=== PATIENT | female | born 1980 | race African-American/Black ===

== ENCOUNTER 2017-05-04 20:44 | Emergency (ER) | payer OTHER ==
[2017-05-04 20:53] VITALS: BP 128/81; PULSE 93; TEMP 99; BMI 28.5
--- NOTE | 2017-05-04 21:44 | PDOC ---
History of Present Illness - General Chief Complaint: Abscess Boil Stated Complaint: PAIN DISCOMFORT IN VAGINA AREA Time Seen by Provider: 05/04/17 21:36 History Source: Patient Exam Limitations: No Limitations - History of Present Illness Initial Comments: CHIEF COMPLAINT: 36 y/o afebrile female with no significant PMH c/o bartholin cyst. HISTORY OF PRESENT ILLNESS: The patient states that she had a bartholin cyst drained Friday (5 days ago) by her ENGINE TESTING SUPERVISOR. A phan's catheter was inserted, which fell out on (3 days ago). She states since then the swelling has returned as well as the pain. She was not placed on any antibiotics and received no injections of antibiotics when she had the cyst drained. She has been soaking in hot water. She denies f/c, n/v/d, CP, SOB, hematuria, dysuria, abd pain. Vital signs on arrival are within normal limits. REVIEW OF SYSTEMS: GENERAL/CONSTITUTIONAL: No fever/chills. No weakness. No weight change. GASTROINTESTINAL: no abd pain, nausea, vomiting, diarrhea. GENITOURINARY: No dysuria, frequency, or change in urination. +painful vaginal cyst MUSCULOSKELETAL: No joint or muscle swelling or pain. No neck or back pain. SKIN: No rash or easy bruising. PHYSICAL EXAM: GENERAL: The patient is awake, alert, and fully oriented, in no acute distress. She is ambulatory and in moderate discomfort. ABDOMEN: Soft, non-distended, non-tender even to deep palpation, no hepatomegaly or splenomegaly, no masses. VAGINAL: nonfluctuant area of edema and erythema of left labia minora at level of vaginal opening. There is a visible opening where the previous phan's catheter was placed. Gentle pressure expresses no discharge from open wound. EXTREMITIES: Normal range of motion, no edema. NEUROLOGICAL: Normal speech, normal gait. CN II-XII grossly intact. SKIN: Warm, dry, normal turgor, no rashes or lesions noted. Past History - Past Medical History Allergies/Adverse Reactions: Allergies Allergy/AdvReac Type Severity Reaction Status Date / Time No Known Allergies Allergy Verified 05/04/17 20:53 Home Medications: Ambulatory Orders Oxycodone HCl/Acetaminophen [Percocet 5-325 mg Tablet] 1 tab PO Q6H #6 tablet MDD 3 05/04/17 Sulfamethoxazole/Trimethoprim [Bactrim Ds -] 1 tab PO BID #14 tablet 05/04/17 - Psycho/Social/Smoking Cessation Hx Anxiety: No Suicidal Ideation: No Smoking History: Never smoked Have you smoked in the past 12 months: No Information on smoking cessation initiated: No Hx Alcohol Use: No Drug/Substance Use Hx: No Substance Use Type: None *Physical Exam - Vital Signs Last Vital Signs Temp Pulse Resp BP Pulse Ox 99.0 F 93 H 18 128/81 100 05/04/17 20:49 05/04/17 20:49 05/04/17 20:49 05/04/17 20:49 05/04/17 20:49 Medical Decision Making - Medical Decision Making A/P: 36 y/o afebrile female with left bartholin cyst. Used hemostat to explore the open tract of the cyst after cleansing with betadine. Was able to reopen the area and no purulent discharge was expressed. WIll send UA for culture and GC/chlamydia. Will give patient a PO Percocet and Bactrim in the ER. Will send RX for bactrim and percocet to her pharmacy. Instructed her to continue with hot soaks, take Motrin during the day for pain with food and percocet at night. Informed her percocet may make her drowsy. Instructed her to take bactrim for entire 7 days and return to the ER in 2 days for wound check. Instructed her to f/u with her ENGINE TESTING SUPERVISOR or Dr. Lopez as soon as possible. The patient verbalizes understanding of all instructions, has no further questions and is awaiting discharge. *DC/Admit/Observation/Transfer Diagnosis at time of Disposition: Bartholin cyst - Discharge Dispostion Disposition: HOME Condition at time of disposition: Good - Prescriptions Prescriptions: Sulfamethoxazole/Trimethoprim [Bactrim Ds -] 1 tab PO BID #14 tablet Oxycodone HCl/Acetaminophen [Percocet 5-325 mg Tablet] 1 tab PO Q6H #6 tablet MDD 3 - Patient Instructions Printed Discharge Instructions: DI for Bartholin Gland Cyst Additional Instructions: Discharge Instructions: -Continue soaking in warm/hot water -A prescription for antibiotics has been sent to your pharmacy; please take as prescribed -You should take 600mg of Ibuprofen every 6 hours during the day for pain with food -A prescription for Percocet was sent to your pharmacy for pain; You can take with Ibuprofen. This medication may cause drowsiness. -Follow up with either your ENGINE TESTING SUPERVISOR or Dr. Lopez as soon as possible -Return to the ER in 2 days for a wound check or if your symptoms are not improving. - Post Discharge Activity Work/School Note: Back to Work
[2017-05-04] MEDS ORDERED: OXYCODONE/APAP 5/325MG COMBO TABLET PO ONE (21:55)
[2017-05-04] MEDS ORDERED: OXYCODONE/APAP 5/325MG COMBO TABLET ONE (21:58)
[2017-05-04] MEDS ORDERED: SULFAMETHOXAZOLE/TRIMETHOPRIM 800MG/160MG D.S. TABLET PO ONE (22:39)
[2017-05-04] MEDS ORDERED: SULFAMETHOXAZOLE/TRIMETHOPRIM 800MG/160MG D.S. TABLET ONE (22:50)
[2017-05-04 23:01] LABS: URINE APPEARANCE CLEAR; URINE BILIRUBIN NEGATIVE (NEGATIVE); URINE BLOOD 2+ (NEGATIVE); URINE COLOR LTYELLOW; URINE GLUCOSE (UA) NEGATIVE (NEGATIVE); URINE KETONE NEGATIVE (NEGATIVE); URINE LEUK ESTERASE NEGATIVE (NEGATIVE); URINE NITRITE NEGATIVE (NEGATIVE); URINE PROTEIN NEGATIVE (NEGATIVE); URINE UROBILINOGEN NEGATIVE E.U./dl (0.2-1.0)
[2017-05-04 23:05] LABS: URINE MUCUS RARE; URINE RBC 79 /hpf (0-3); URINE WBC 5 /hpf (3-5)
== END 2017-05-04 23:10 | disposition home or self-care (01) ==
LOC: JERFT 20:44
DX: N75.0 Cyst of Bartholin's gland (principal)
CPT/HCPCS: 36415; 81003; 81015; 84703; 87086; 87491; 87591; 99281-25